=== PATIENT | male | born 1960 | race Caucasian/White ===

== ENCOUNTER 2016-06-26 14:20 | Day surgery (SDC) | payer MEDICARE, MEDICAID ==
[~2016-06-26] VITALS: Ht 177.8 cm; Wt 94.8 kg
[~2016-06-26 14:20] MED LIST: GABAPENTIN 600600 MG PO; LORTAB 7.5/3251 TAB PO
[2016-06-26 14:31] VITALS: BP 130/91
[2016-06-26] MEDS ORDERED: HYDROCHLOROTH12.5 M1 PO (14:35)
[2016-06-26 14:43] VITALS: BP 130/91; BP 168/103
--- NOTE | 2016-06-26 14:51 | Procedure Note ---
Procedure detail Date of procedure: 06/26/16 Anesthesiologist: Eben york CRNA Complications: None Pre-procedure diagnosis: Degenerative disease cervical spine multiple level cervical radiculopathy symptoms. Post-procedure diagnosis: Same. Indications for procedure: Very pleasant 36-year-old white male that recently came to our pain clinic for consultation regarding chronic cervical neck pain secondary to degenerative disc disease cervical spine multiple levels with cervical radiculopathy symptoms. Patient describes cervical neck pain as constant, dull, aching. He rates his cervical neck pain a 6/10. Patient presents today for his first cervical epidural steroid injection. Patient has had multiple injected therapy in the past although from a different pain clinics. Procedure detail: Procedure:Cervical epidural steroid injection Informed consent was obtained and the risks and benefits of the procedure were explained to the patient. The patient was taken to the procedure room and noninvasive monitors placed, including noninvasive blood pressure cuff and pulse oximeter. The neck was prepped using Betadine as a cleansing solution. The C6-C7 interspace was palpated. The skin and subcutaneous tissues were anesthetized using lidocaine 1.5% and a 25-gauge needle. After this an 18-gauge Touhy epidural needle was placed into the C6-C7 interspace and advanced using loss of resistance to air until the epidural space was encountered. After confirmation of needle placement in the epidural space, a solution containing lidocaine 1.5%, 4 mL and Depo-Medrol 80 mg was incrementally injected into the cervical epidural space.~ The patient tolerated the procedure well with no complications. The patient was observed in the Pain Clinic and then discharged home neurologically intact. Plan and disposition: Patient was reevaluated 10 minutes postprocedure. Patient doing very well. He'll return to see us in the pain clinic for further evaluation. at [id number]
[2016-06-26 15:20] VITALS: BP 139/99
== END 2016-06-26 15:20 ==
LOC: PM 14:20
PROC: 3E0R33Z Introduction of Anti-inflammatory into Spinal Canal, Percutaneous Approach (ICD-10-PCS; principal; 2016-06-26)
PROC: 3E0R3BZ Introduction of Anesthetic Agent into Spinal Canal, Percutaneous Approach (ICD-10-PCS; 2016-06-26)
DX: M50.10 Cervical disc disorder with radiculopathy, unspecified cervical region (principal)
CPT/HCPCS: J1040; Q9966